=== PATIENT | female | born 1940 | race Caucasian/White ===

== ENCOUNTER 2016-10-20 11:03 | Outpatient (CLI) | payer MEDICARE, OTHER ==
[2016-10-20 14:59] LABS: Hemoglobin A1c 5.6 % (4.0-6.0)
== END 2016-10-20 11:04 ==
LOC: NAVSJIPCSP 11:03
PROVIDERS: ATTEND Internal Medicine
DX: N18.2 Chronic kidney disease, stage 2 (mild) (principal); E11.29 Type 2 diabetes mellitus with other diabetic kidney complication; E78.5 Hyperlipidemia, unspecified
CPT/HCPCS: 36415; 80061; 83036

== ENCOUNTER 2016-12-24 14:04 | Emergency (ER) | payer MEDICARE, OTHER ==
--- NOTE | 2016-12-24 16:35 | CT ---
CT OF THE BRAIN PERFORMED WITHOUT CONTRAST ENHANCEMENT: 12/24/16 HISTORY: Fall with headache. There is marked generalized ventricular and sulcal prominence. There are decreased attenuation of th e periventricular white matter consistent with some chronic ischemic white matter change. Dense calc ification of the frontal lobe adjacent to the falx is probably a calcified meningioma. IMPRESSION: No acute intracranial abnormalities. POS: [facility]
--- NOTE | 2016-12-24 16:38 | CT ---
CT OF CERVICAL SPINE PERFORMED WITHOUT CONTRAST ENHANCEMENT: 12/24/16 HISTORY: Neck pain status post fall. Vertebral bodies are normal in height. The patient has undergone an anterior cervical fusion extendi ng from C4 to C6. Degenerative facet changes are present. The facets are in normal alignment. There is some mild bilateral foraminal narrowing at C4-5 and C5-6. Some borderline canal narrowing at thes e levels. There is no CT evidence for fracture. The lungs apices are clear. IMPRESSION: Postoperative changes of the cervical spine. No CT evidence of fracture. POS: [facility]
== END 2016-12-24 15:30 | disposition home or self-care (01) ==
LOC: NAV ERS 14:04
DX: S00.93XA Contusion of unspecified part of head, initial encounter (principal); M54.2 Cervicalgia; S00.01XA Abrasion of scalp, initial encounter; E11.9 Type 2 diabetes mellitus without complications; E78.5 Hyperlipidemia, unspecified; E78.00 Pure hypercholesterolemia, unspecified; I10 Essential (primary) hypertension; F41.9 Anxiety disorder, unspecified; F32.9 Major depressive disorder, single episode, unspecified; Z87.891 Personal history of nicotine dependence; Z79.899 Other long term (current) drug therapy; Z79.82 Long term (current) use of aspirin; Z79.4 Long term (current) use of insulin; W01.198A Fall on same level from slipping, tripping and stumbling with subsequent striking against other object, initial encounter
CPT/HCPCS: 70450; 72125

== ENCOUNTER 2017-04-17 09:59 | Outpatient (CLI) | payer MEDICARE, OTHER ==
[2017-04-17 14:03] LABS: Anion Gap 14 mmol/L (10-20); BUN (Urea Nitrogen) 24 mg/dL (9.8-20.1); Calc. Creatinine Clearance 0 mL/min (70-130); Carbon Dioxide 24 mmol/L (23-31); Chloride 107 mmol/L (98-107); Estimated GFR-MDRD 37; Glucose 95 mg/dL (83-110); Potassium 4.7 mmol/L (3.5-5.1); Sodium 140 mmol/L (136-145)
[2017-04-17 14:16] LABS: Hemoglobin A1c 5.5 % (4.0-6.0)
== END 2017-04-17 10:00 | disposition home or self-care (01) ==
LOC: NAVSJIPCSP 09:59
PROVIDERS: ATTEND Internal Medicine
DX: Z51.81 Encounter for therapeutic drug level monitoring (principal); Z79.899 Other long term (current) drug therapy
CPT/HCPCS: 36415; 80048; 83036

== ENCOUNTER 2017-05-05 11:52 | Emergency (ER) | payer MEDICARE, OTHER ==
[2017-05-05] MEDS ORDERED: Acetaminophen 500 MG TAB ONE (12:17)
--- NOTE | 2017-05-05 13:01 | CT ---
CT HEAD WITHOUT IV CONTRAST: Date: 05/05/17 HISTORY: Injury after falling while getting into a car. COMPARISON: 12/24/16. FINDINGS: Densely calcified meningioma in the anterior right frontal region in a parasagittal location is agai n seen and unchanged. No calvarial fracture is seen. Visualized paranasal sinuses and mastoid air ce lls are clear. IMPRESSION: 1. Stable CT scan of the head without evidence of an acute intracranial abnormalities demonstrated. 2. Chronic small vessel ischemic change and cerebral volume loss, similar to the prior study. 3. Stable densely calcified meningioma measuring approximately 1.3 cm in a right parasagittal locat ion in anterior right frontal region. POS: [facility]
== END 2017-05-05 12:47 | disposition home or self-care (01) ==
LOC: NAV ERS 11:52
DX: S00.03XA Contusion of scalp, initial encounter (principal); I25.2 Old myocardial infarction; I48.91 Unspecified atrial fibrillation; E11.9 Type 2 diabetes mellitus without complications; E78.5 Hyperlipidemia, unspecified; I10 Essential (primary) hypertension; F41.9 Anxiety disorder, unspecified; F32.9 Major depressive disorder, single episode, unspecified; Z87.891 Personal history of nicotine dependence; Z79.4 Long term (current) use of insulin; Z79.899 Other long term (current) drug therapy; W18.30XA Fall on same level, unspecified, initial encounter
CPT/HCPCS: 70450

== ENCOUNTER 2017-07-29 12:48 | Emergency (ER) | payer MEDICARE, OTHER ==
[2017-07-29] MEDS ORDERED: Dextrose 50% Abboject 50 ML SYRINGE ONE (13:46)
== END 2017-07-29 13:33 | disposition home or self-care (01) ==
LOC: NAV ERS 12:48
DX: E11.649 Type 2 diabetes mellitus with hypoglycemia without coma (principal); I48.91 Unspecified atrial fibrillation; I25.2 Old myocardial infarction; E78.5 Hyperlipidemia, unspecified; M10.9 Gout, unspecified; F32.9 Major depressive disorder, single episode, unspecified; I10 Essential (primary) hypertension; F41.9 Anxiety disorder, unspecified; Z87.891 Personal history of nicotine dependence; Z79.4 Long term (current) use of insulin
CPT/HCPCS: 36416; 96374

== ENCOUNTER 2017-08-03 12:03 | Emergency (ER) | payer MEDICARE, OTHER ==
[2017-08-03] MEDS ORDERED: Dextrose 50% Abboject 50 ML SYRINGE ONE (12:20)
[2017-08-03 12:47] LABS: #Basophils 0.1 thou/uL (0.0-0.2); #Eosinphils 0.2 thou/uL (0.0-0.7); #Lymphocytes 2.7 thou/uL (1.20-3.40); #Monocytes 0.6 thou/uL (0.11-0.59); #Neutrophils 3.8 thou/uL (1.40-6.50); %Basophils 1.4 % (0.0-1.0); %Eosinophils 2.4 % (0.0-10.0); %Monocytes 8.6 % (0.0-10.0); %Neutrophils 51.6 % (42.0-75.0); Hemoglobin 12.3 g/dL (12.0-16.0); Mean Corpuscular HGB CONC 34.8 g/dL (32.0-36.0); Mean Corpuscular Hemoglobin 32.9 pg (27.0-31.0); Mean Corpuscular Volume 94.8 fl (81.0-99.0); Mean Platelet Volume 8.5 fL (7.4-10.4); Platelet Count 180 thou/uL (130-400); RBC Distribution Width 11.8 % (11.5-14.5); Red Blood Cell (RBC) Count 3.73 mill/uL (4.20-5.40); White Blood Cell (WBC) Count 7.4 thou/uL (4.8-10.8)
[2017-08-03 12:49] LABS: Anion Gap 12 mmol/L (10-20); BUN (Urea Nitrogen) 31 mg/dL (9.8-20.1); Calc. Creatinine Clearance 0 mL/min (70-130); Calcium 9.1 mg/dL (7.8-10.44); Carbon Dioxide 26 mmol/L (23-31); Chloride 107 mmol/L (98-107); Estimated GFR-MDRD 38; Potassium 4.4 mmol/L (3.5-5.1); Sodium 141 mmol/L (136-145)
[2017-08-03 12:56] LABS: Glucose 29 mg/dL (83-110)
[2017-08-03] MEDS ORDERED: Lidocaine 1% 20 ML MDV ONE (12:58)
[2017-08-03] MEDS ORDERED: Bacitracin Zinc 1 Packet ONE (12:58)
--- NOTE | 2017-08-03 13:17 | CT ---
CT BRAIN PERFORMED WITHOUT CONTRAST ENHANCEMENT: History: Fall with head injury. Comparison: 05-05-17 FINDINGS: There is some generalized ventricular and sulcal prominence. There are no signs of intracerebral hem orrhage or extraaxial fluid collections. Calcified right parasagittal frontal meningioma is again no nicolás. There is a left frontal scalp hematoma. The mastoid air cells and visualized sinuses are clear. IMPRESSION: No acute intracranial abnormalities. 2. Atrophy and chronic white matter change. 3. Calcified extraaxial mass in the right frontal lobe in a parafalcine location most compatible wit h meningoma. POS: OFF
[2017-08-03 14:06] LABS: Bilirubin Negative (Negative); Blood, Urine Negative (Negative); Clarity Clear (Clear); Glucose, Urine (Dipstick) Negative (Negative); Leukocyte Negative (Negative); Nitrite Negative (Negative); Protein, Urine (Dipstick) Negative (Neg-Trace); Urobilinogen 0.2 mg/dL (0.2-1.0)
[2017-08-03] MEDS ORDERED: Dextrose 5% in Water 1,000 ML ONE (14:18)
== END 2017-08-03 17:05 | disposition home or self-care (01) ==
LOC: NAV ERS 12:03
DX: S01.112A Laceration without foreign body of left eyelid and periocular area, initial encounter (principal); S50.812A Abrasion of left forearm, initial encounter; S80.212A Abrasion, left knee, initial encounter; S80.211A Abrasion, right knee, initial encounter; I25.2 Old myocardial infarction; I48.91 Unspecified atrial fibrillation; E11.9 Type 2 diabetes mellitus without complications; E78.1 Pure hyperglyceridemia; I10 Essential (primary) hypertension; M06.9 Rheumatoid arthritis, unspecified; G47.30 Sleep apnea, unspecified; F41.9 Anxiety disorder, unspecified; F32.9 Major depressive disorder, single episode, unspecified; Z87.891 Personal history of nicotine dependence; Z79.4 Long term (current) use of insulin; Z79.899 Other long term (current) drug therapy; W17.89XA Other fall from one level to another, initial encounter
CPT/HCPCS: 36416; 51701; 70450; 80048; 81003; 85025; 96361; 96374; J2001; J7070